=== PATIENT | male | born 1955 | race Caucasian/White ===

== ENCOUNTER 2024-05-15 07:02 | Observation (INO) | payer MEDICARE ==
[2024-05-12 12:34] VITALS: BMI 31.8
[2024-05-15] MEDS ORDERED: CEFAZOLIN 2 GM VIAL ONE (08:08)
[2024-05-15] MEDS ORDERED: Vancomycin 1 GM VIAL ONE (09:05)
[2024-05-15] MEDS ORDERED: PROPOFOL 20 ML ONE ×2 (09:20→11:13)
[2024-05-15] MEDS ORDERED: Rocuronium Bromide 10 MG/ML (10ML VIAL) ONE (09:20)
[2024-05-15] MEDS ORDERED: Lidocaine 2% PF 5 ML VIAL ONE (09:20)
[2024-05-15] MEDS ORDERED: fentaNYL PF 100 MCG/2 ML SYRINGE ONE ×2 (09:20→11:50)
[2024-05-15] MEDS ORDERED: Midazolam HCl 2 mg/2 ml Vial ONE (10:16)
[2024-05-15] MEDS ORDERED: Ondansetron PF 4 MG/2 ML Vial ONE (10:33)
[2024-05-15] MEDS ORDERED: Dexamethasone 20 MG/5 ML VIAL ONE (10:33)
[2024-05-15] MEDS ORDERED: ePHEDrine Sulfate 50 MG/10 ML VIAL ONE (10:55)
[2024-05-15] MEDS ORDERED: HYDROmorphone 2 MG/ML VIAL ONE (11:05)
[2024-05-15] MEDS ORDERED: Glycopyrrolate 0.2 MG/ML 5 ML SYRINGE ONE (11:06)
[2024-05-15] MEDS ORDERED: NEOSTIGMINE 3 MG/3 ML SYRINGE ONE (11:06)
[2024-05-15] MEDS ORDERED: Acetaminophen/Codeine 30-300mg Tablet PO PRN (11:21)
[2024-05-15] MEDS ORDERED: Acetaminophen 325 MG TAB PO PRN (11:21)
[2024-05-15] MEDS ORDERED: Mag-Al 1200 mg/1200 mg/30 ML UDCUP PO PRN (11:21)
[2024-05-15] MEDS ORDERED: Promethazine 25 MG TAB PO PRN (11:21)
[2024-05-15] MEDS ORDERED: diphenhydrAMINE 50 MG/ML VIAL IVP PRN (11:21)
[2024-05-15] MEDS ORDERED: Milk Of Magnesia 30 ML UDCUP PO PRN (11:21)
[2024-05-15] MEDS ORDERED: Cyclobenzaprine 10 MG TAB PO PRN (11:21)
[2024-05-15] MEDS ORDERED: Ondansetron PF 4 MG/2 ML Vial IVP PRN (11:21)
[2024-05-15] MEDS ORDERED: Morphine 2 MG/ML VIAL SLOW IVP PRN (11:21)
[2024-05-15] MEDS ORDERED: traMADol HCl 50 MG TAB PO PRN (11:21)
[2024-05-15] MEDS ORDERED: HYDROmorphone 0.5 MG/0.5 ML SYRINGE ONE (11:38)
[2024-05-15] MEDS ORDERED: Ondansetron HCl/PF 4 MG/2 ML Vial IVP PRN (12:00)
[2024-05-15] MEDS ORDERED: Promethazine HCl 25 MG/ML VIAL IM PRN (12:00)
[2024-05-15] MEDS ORDERED: HYDROmorphone 2 MG/ML VIAL SLOW IVP PRN (12:00)
[2024-05-15] MEDS: Sodium Chloride 0.9% 1,000 ML IV SCH (13:45)
[2024-05-15] MEDS: Acetaminophen/Codeine 30-300mg Tablet PO PRN (14:35)
[2024-05-15] MEDS: CEFAZOLIN 2 GM in Sodium Chloride 0.9% 100 ML IVPB SCH ×2 (14:35→20:14)
[2024-05-16 07:35] VITALS: BP 131/89; TEMP 98.2
== END 2024-05-16 10:29 | disposition home or self-care (01) ==
LOC: SDC 07:02 → SURG A 13:30
PROVIDERS: ADMIT Neurological Surgery; ATTEND Neurological Surgery
PROC: 00NY0ZZ Release Lumbar Spinal Cord, Open Approach (ICD-10-PCS; principal; 2024-05-15)
DX: M48.062 Spinal stenosis, lumbar region with neurogenic claudication (principal)
CPT/HCPCS: 63047; 63048; 97110; 97116; C1713; J1100; J1171 ×2; J2250; J2405; J2704; J3370